=== PATIENT | male | born 1985 | race Caucasian/White ===

== ENCOUNTER 2023-07-08 19:41 | Emergency (ER) | payer OTHER, SELFPAY ==
[2023-07-08 19:48] VITALS: BP 165/98; PULSE 77; RESP 18; TEMP 36.8; O2SAT 100; BMI 25.8
--- NOTE | 2023-07-08 19:53 | ED_ITS ---
HPI - Extremity Injury (Upper) General Time Seen by Provider: 19:53 Date Seen: 07/08/23 Chief Complaint: Extremity Pain/Injury, Upper Stated Complaint: R thumb infection Time Seen by Provider: 07/08/23 19:47 Source: patient and RN notes reviewed Mode of arrival: ambulatory Limitations: no limitations History of Present Illness HPI narrative: This 37-year-old male is coming in with concern of an infected right thumb wound. He cut his thumb well harvesting chickens yesterday. He states that he had too many rooster is. The thumb started to become red and swollen, he did drain some pus out of the scabbed area earlier today, states it was much more swollen before than. That did help alleviate some of his symptoms. He started noting a red line tracking up his arm. He does not have any headache, does not feel ill, no fevers or chills, no body aches. He has a history of asthma as a child which she outgrew, has no current symptoms. Otherwise states he is healthy. He is unsure of his last tetanus, nursing staff did look up in he is not in [place] immunization website. Had reviewed this with patient, he is agreeable to have his tetanus updated. complaint: injury to: right and finger (Thumb specifically) Related Data Previous Rx's Medication Instructions Recorded amoxicillin 875 mg-potassium 1 tab PO BID #20 tabs 07/08/23 clavulanate 125 mg tablet Allergies Allergy/AdvReac Type Severity Reaction Status Date / Time No Known Drug Allergies Allergy Verified 07/08/23 19:51 Review of Systems Narrative: As per HPI. PFSH PFSH Social History Smoking Status: Never smoker Do you use any of these nicotine containing products: None Second hand tobacco smoke exposure: No How often do you have a drink containing alcohol: 4 or more times a week How many standard drinks containing alcohol do you have on a typical day: 1 or 2 AUDIT-C Alcohol total score: 4 Non-prescribed substance use: denies use Exam Const: Vital Signs, click to edit/add: Vital Signs - 24 hr 07/08/23 19:48 Temperature 98.3 F Pulse Rate [Pulse Oximeter] 77 Respiratory Rate 18 Blood Pressure [Ri ght Upper Arm] 165/98 H Pulse Oximetry 100 Oxygen Delivery Me thod Room Air This 37-year-old male is alert, interactive, no apparent stress. He has clear lungs, no wheezing or crackles. CV regular rate and rhythm, no murmur, normal S1-S2, no S3-S4. Neck supple, no adenopathy. Able speak in complete sentences, symmetrical facial function, sclera clear. His right thumb has a little scabbed area over the IP joint, a little 1 more proximally. Both of these little scabs have erythema around them, neither of fluctuant. He demonstrates full flexion extension of the thumb throughout all joints. There is linear streaking that you can see faintly going up the lateral ventral arm and goes up the inside of his upper arm prison. Documenting provider has reviewed patient's vital signs: yes Course Course ED Course: This patient has lymphangitic streaking, cellulitis. Will place an IV, get baseline lab work. He overall looks quite well though, has no fever, is he modynamically stable. Will give him a dose of IV Unasyn 3 g, likely send out on oral Augmentin. Will get a CBC, C reactive protein basic metabolic panel. Will update his tetanus with a Tdap. He does understand he might get a low-grade fever from that in feel achy. However, if he gets a temperature over 100 at home, is noticing significant worsening of his thumb or redness into the arm, he reassures me that he will return. At this time, I am inclined to discharge to home with oral antibiotics after initial IV dose of Unasyn. Do not feel he needs any imaging at this time. Reevaluation(s) Time of Reevaluation #1: 20:55 Reevaluation #1: Have reviewed with patient his lab results. His CBC and basic metabolic panel are normal. Did review the C reactive protein which is elevated. This does give us a baseline to follow in case of worsening. He is in agreement with the trial of outpatient management. He looks quite stable. His tetanus has been updated. He is just completing his IV antibiotics. Vital Signs Vital signs: Initial Vital Signs Temperature 98.3 F 07/08/23 19:48 Temperature Source Temporal Artery Scan 07/08/23 19:48 Pulse Rate 77 07/08/23 19:48 Respiratory Rate 18 07/08/23 19:48 Blood Pressure 165/98 H 07/08/23 19:48 Blood Pressure Mean 120 H 07/08/23 19:48 Blood Pressure Position Sitting 07/08/23 19:48 Pulse Oximetry 100 07/08/23 19:48 Oxygen Delivery Method Room Air 07/08/23 19:48 Vital Signs Temperature 98.3 F 07/08/23 19:48 Pulse Rate 77 07/08/23 19:48 Respiratory Rate 18 07/08/23 19:48 Blood Pressure 165/98 H 07/08/23 19:48 Pulse Oximetry 100 07/08/23 19:48 Oxygen Delivery Method Room Air 07/08/23 19:48 Temperature 98.3 F 07/08/23 19:48 Pulse Rate 77 07/08/23 19:48 Respiratory Rate 18 07/08/23 19:48 Blood Pressure 165/98 H 07/08/23 19:48 Pulse Oximetry 100 07/08/23 19:48 Oxygen Delivery Method Room Air 07/08/23 19:48 Medications Administered Medications: Generic Name Dose Route Start Last Admin Trade Name Freq PRN Reason Stop Dose Admin Diphtheria/Tetanus/Acell Pertussis 0.5 ml 07/08/23 20:05 07/08/23 20:33 Tetanus/Diphth/Pertussis 0.5 Ml Syringe IM 07/08/23 20:06 0.5 ml .ONCE ONE Administration Ampicillin Sodium/Sulbactam 100 mls @ 200 mls/hr 07/08/23 20:07 07/08/23 20:25 Sodium 3 gm/ Sodium Chloride IVPB 07/08/23 20:08 200 mls/hr ONCE ONE Administration MDM - Extremity Injury (Upper) Lab Data Attestation: I reviewed the patient's lab results. Labs: Lab Results 07/08/23 Range/Units 20:13 WBC 8.68 (4.50-11.00) K/uL RBC 4.67 (4.30-5.90) m/uL Hgb 14.0 (13.5-17.5) gm/dL Hct 40.3 (37.0-53.0) % MCV 86 (80-100) fL MCH 30 (26-34) pg MCHC 35 (32-36) gm/dL RDW Coeff of Philippe 12.0 (11.5-15.5) % Plt Count 246 (140-440) K/uL Neut % (Auto) 59.6 (42.0-72.0) % Lymph % (Auto) 28.9 (20-44) % Sampson % (Auto) 6.7 (0.0-11.0) % Eos % (Auto) 3.8 (0.0-7.0) % Baso % (Auto) 0.2 (0.0-3.0) % Neut # (Auto) 5.17 (1.7-7.0) K/uL Lymph # (Auto) 2.51 (0.90-2.90) K/uL Sampson # (Auto) 0.60 (0.00-0.90) K/UL Eos # (Auto) 0.33 (0.00-0.50) K/uL Baso # (Auto) 0.02 (0.00-0.30) K/uL Abs Immat Gran (auto) 0.07 (0.00-0.30) K/uL Imm/Tot Granulo (auto) 0.8 % Sodium 138 (135-149) mmol/L Potassium 4.2 (3.6-5.1) mmol/L Chloride 103 (96-114) mmol/L Carbon Dioxide 21 (20-32) mmol/L Anion Gap 14 (7-15) mEq/L BUN 14 (5-24) mg/dL Creatinine 0.9 (0.5-1.5) mg/dL Estimated Creat Clear 122.01 Estimated GFR 114 ml/min Glucose 111 (60-115) mg/dL Calcium 9.1 (8.4-10.6) mg/dL C-Reactive Protein 4.2 H (0.5-1.0) mg/dL Discharge Plan Discharge Clinical Impression: Lymphangitis, Cellulitis of right thumb Patient Disposition: Home, Self-Care Condition: Stable Instructions: Cellulitis (ED) Additional Instructions: Need to start the Augmentin tomorrow morning and take as prescribed. Recommend recheck in clinic within the next 1-3 days. Certainly if you are worsening, infection is worsening, return to the ER for further evaluation. If you have some low-grade temperatures in the 99 range, have some mild aching which could be from the tetanus shot, certainly can try some Tylenol and ibuprofen. If your infection is becoming more severe, Tylenol and ibuprofen are not going to esquivel ppress any significant worsening. Activity Level: Activity as Tolerated Discharge Diet: Regular Prescriptions: New amoxicillin-pot clavulanate 875-125 mg tablet 1 tab PO BID Qty: 20 0RF Follow Up/Referrals: Provider,Not a Local [Primary Care Provider] - Stand Alone Forms: [employer] Info Instructions
[2023-07-08 20:18] LABS: Basophils Absolute Auto 0.02 K/uL (0.00-0.30); Basophils Percent Auto 0.2 % (0.0-3.0); Eosinophils Absolute Auto 0.33 K/uL (0.00-0.50); Eosinophils Percent Auto 3.8 % (0.0-7.0); Hematocrit 40.3 % (37.0-53.0); Immature Granulocytes Abs Auto 0.07 K/uL (0.00-0.30); Immature Granulocytes Pct Auto 0.8 %; Lymphocytes Absolute Auto 2.51 K/uL (0.90-2.90); Lymphocytes Percent Auto 28.9 % (20-44); Mean Corpuscular HGB Conc 35 gm/dL (32-36); Mean Corpuscular Hemoglobin 30 pg (26-34); Mean Corpuscular Volume 86 fL (80-100); Monocytes Percent Auto 6.7 % (0.0-11.0); Neutrophils Absolute Auto 5.17 K/uL (1.7-7.0); Neutrophils Percent Auto 59.6 % (42.0-72.0); Platelet Count* 246 K/uL (140-440); Red Blood Count 4.67 m/uL (4.30-5.90); White Blood Count* 8.68 K/uL (4.50-11.00)
[2023-07-08 20:23] LABS: Slide Review Reflex No
[2023-07-08] MEDS: AMPICILLIN/SULBACTAM 3 GM in 0.9 % SODIUM CHLORIDE Mini-bag 100 ML IVPB (20:25)
[2023-07-08 20:33] LABS: Chloride* 103 mmol/L (96-114); Sodium* 138 mmol/L (135-149)
[2023-07-08] MEDS: TETANUS/DIPHTH/PERTUSSIS 0.5 ML SYRINGE IM (20:33)
[2023-07-08 20:34] LABS: Potassium* 4.2 mmol/L (3.6-5.1)
[2023-07-08 20:36] LABS: Creatinine* 0.9 mg/dL (0.5-1.5); Est. Creatinine Clearance* 122.01; Estimated Glomerular Filt Rate 114 ml/min
[2023-07-08 20:37] LABS: Anion Gap 14 mEq/L (7-15); Blood Urea Nitrogen* 14 mg/dL (5-24); Calcium* 9.1 mg/dL (8.4-10.6); Carbon Dioxide* 21 mmol/L (20-32); Glucose* 111 mg/dL (60-115)
[2023-07-08 20:40] LABS: C Reactive Protein* 4.2 mg/dL (0.5-1.0)
== END 2023-07-08 21:08 | disposition home or self-care (01) ==
PROVIDERS: Emergency Provider Family Medicine
DX: L03.011 Cellulitis of right finger (principal); Z23 Encounter for immunization
CPT/HCPCS: 36415; 80048; 85025; 86140; 90471; 90715; 96365; 99283; 99284; J0295